=== PATIENT | male | born 1975 | race Caucasian/White ===

== ENCOUNTER 2024-05-21 18:06 | Emergency (ER) | payer BC, SELFPAY ==
[2024-05-21] VITALS (12 sets, daily range): BP systolic 116–128; BP diastolic 72–83; PULSE 54–60; RESP 18–19; TEMP 36.4; O2SAT 95–98; BMI 28.7
--- NOTE | 2024-05-21 18:22 | ED.CHESTPAIN ---
HPI - Chest Pain General Time Seen by Provider: 18: Date Seen: 05/21/24 Chief Complaint: Chest Pain Stated Complaint: chest pain Time Seen by Provider: 05/21/24 18:21 Source: patient and RN notes reviewed Mode of arrival: ambulatory Limitations: no limitations History of Present Illness HPI narrative: This 48-year-old male with no prior cardiac history is coming in with chest discomfort. Has chest tightness, pain that goes into his neck, some into the left shoulder blade that is been present since Saturday. Saturday he had an episode walking down to the [employer] where he was sweaty, pale, had to sit down, the pain was worse than it did improve. He had another episode today where was worse. He rested for 15-30 minutes and it improved. He baseline has discomfort in his chest now but not as severe as what it was. There is no respiratory change with this, no GI symptoms such as nausea or abdominal pain. The pain is not going into his left arm, notes no neurologic changes. Both parents have a pacemaker, his dad had a heart attack in his 50s. Patient believes that his blood pressure, cholesterol, glucose have been good, he believes they were just recently checked. He has had no recent illness, no cough or cold symptoms accompanying this. He did recently have some cramps in his legs, he did try a potassium pill, that did not help. Related Data Home Medications ?Medication ?Instructions ?Recorded ?Confirmed multivitamin 1 tab PO QDAY 04/08/23 05/21/24 cholecalciferol (vitamin D3) 250 250 mcg PO QDAY 12/17/23 05/21/24 mcg (10,000 unit) capsule Allergies Allergy/AdvReac Type Severity Reaction Status Date / Time No Known Drug Allergies Allergy Verified 05/21/24 18:18 Review of Systems Status of ROS Reports: 6 or more systems reviewed and unremarkable except as noted in History and below [facility] Medical History Skin lesion of face ?L98.9 - Disorder of the skin and subcutaneous tissue, unspecified (ICD-10) Surgical History S/P inguinal hernia repair ?Z98.890 - Other specified postprocedural states (ICD-10) ?Z87.19 - Personal history of other diseases of the digestive system (ICD-10) S/P lumbar discectomy ?Z98.890 - Other specified postprocedural states (ICD-10) Social History Narrative: Single, manager [employer], 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, social ETOH Smoking Status: Current every day smoker What tobacco products do you use: cigarettes Do you use any of these nicotine containing products: None How often do you have a drink containing alcohol: 2-3 times a week AUDIT-C Alcohol total score: 3 Non-prescribed substance use: denies use Little interest or pleasure in doing things: not at all Feeling down, depressed, or hopeless: not at all Exam Const Vital Signs, click to edit/add: Vital Signs - 24 hr 05/21/24 18:13 05/21/24 18:26 05/21/24 18:30 Temperature 97.5 F L Pulse Rate 56 L 59 L Pulse Rate [Pulse Oximeter] 55 L Respiratory Rate 18 Blood Pressure Blood Pressure [Right Upper Arm] 116/72 Pulse Oximetry 98 97 97 Oxygen Delivery Method Room Air 05/21/24 18:31 05/21/24 18:32 05/21/24 18:33 Temperature Pulse Rate 56 L 60 Pulse Rate [Pulse Oximeter] Respiratory Rate 19 Blood Pressure 125/75 Blood Pressure [Right Upper Arm] Pulse Oximetry 96 97 Oxygen Delivery Method 05/21/24 18:34 05/21/24 18:48 05/21/24 18:49 Temperature Pulse Rate 55 L 56 L Pulse Rate [Pulse Oximeter] Respiratory Rate Blood Pressure 128/83 Blood Pressure [Right Upper Arm] Pulse Oximetry 96 96 96 Oxygen Delivery Method 05/21/24 19:00 05/21/24 19:02 05/21/24 19:15 Temperature Pulse Rate 59 L 57 L 54 L Pulse Rate [Pulse Oximeter] Respiratory Rate Blood Pressure 118/76 Blood Pressure [Right Upper Arm] Pulse Oximetry 96 96 95 Oxygen Delivery Method Course Course ED Course: Have reviewed with patient that his initial EKG is looking reassuring. He understands that he will have an IV placed, will be monitored on pulse oximetry and cardiac monitoring. He will have a troponin done. He has had baseline symptoms since Saturday, a solitary troponin should be sufficient to rule out active ischemic disease. He has had 2 episodes of worsening but does have baseline discomfort. Will do a screening portable chest x-ray to look at lung pathology, cardiac size. He will have full complement of labs. He does understand that if the troponin is normal, this does not completely rule out underlying cardiac disease but only tells us that he has no active ischemia raising his heart enzymes. He understands that we are doing a screening D-dimer in consideration of thromboembolic disease. Doubt dissection with his blood pressure and his symptoms. Reevaluation(s) Time of Reevaluation #1: 19:50 Reevaluation #1: Reviewed normal labs including troponin and d dimer with the patient. He still has a sense of mild underlying discomfort. Nothing like he got on Saturday with walking or with driving this am. Time of Reevaluation #2: 20:42 Reevaluation #2: Patient was upset, states he has been waiting 50 minutes and has not heard anything. Reviewed with him that Cardiology had not called back. He does not want to wait. Gave him the option of just scheduling a stress test so that he does not have to follow-up, go through primary care to get this scheduled. We can get him a follow-up appointment in clinic for further management of his symptoms once his stress test is done. He does not have a primary provider per his report. He agrees that he will come back if he has any further episodes of increasing chest pain. Did apologize that we had not heard back from Cardiology, my plan was to have staff page them again if we had an heard by 1 hour. Did review with him that I do note that the external facilities are quite busy, it does make us wait longer to hear back. He would just like to go home, we will schedule a stress test for him to try to facilitate further workup to rule out ischemic heart disease. Vital Signs Vital signs: Initial Vital Signs Temperature 97.5 F L 05/21/24 18:13 Temperature Source Temporal Artery Scan 05/21/24 18:13 Pulse Rate 55 L 05/21/24 18:13 Respiratory Rate 18 05/21/24 18:13 Blood Pressure 116/72 05/21/24 18:13 Blood Pressure Mean 86 05/21/24 18:13 Blood Pressure Position Sitting 05/21/24 18:13 Pulse Oximetry 98 05/21/24 18:13 Oxygen Delivery Method Room Air 05/21/24 18:13 Vital Signs Temperature 97.5 F L 05/21/24 18:13 Pulse Rate 55 L 05/21/24 18:13 Respiratory Rate 18 05/21/24 18:13 Blood Pressure 116/72 05/21/24 18:13 Pulse Oximetry 98 05/21/24 18:13 Oxygen Delivery Method Room Air 05/21/24 18:13 Temperature 97.5 F L 05/21/24 18:13 Pulse Rate 54 L 05/21/24 19:15 Respiratory Rate 19 05/21/24 18:33 Blood Pressure 118/76 05/21/24 19:02 Pulse Oximetry 95 05/21/24 19:15 Oxygen Delivery Method Room Air 05/21/24 18:13 MDM - Chest Pain Lab Data Attestation: I reviewed the patient's lab results. Labs: Lab Results 05/21/24 05/21/24 Range/Units 18:45 19:08 WBC 7.80 (4.50-11.00) K/uL RBC 5.11 (4.30-5.90) m/uL Hgb 16.3 (13.5-17.5) gm/dL Hct 47.6 (37.0-53.0) % MCV 93 (80-100) fL MCH 32 (26-34) pg MCHC 34 (32-36) gm/dL RDW Coeff of Yolanda 12.2 (11.5-15.5) % Plt Count 204 (140-440) K/uL Neut % (Auto) 48.6 (42.0-72.0) % Lymph % (Auto) 40.5 (20-44) % Oldham % (Auto) 7.7 (0.0-11.0) % Eos % (Auto) 2.6 (0.0-7.0) % Baso % (Auto) 0.5 (0.0-3.0) % Neut # (Auto) 3.79 (1.7-7.0) K/uL Lymph # (Auto) 3.16 H (0.90-2.90) K/uL Oldham # (Auto) 0.60 (0.00-0.90) K/UL Eos # (Auto) 0.20 (0.00-0.50) K/uL Baso # (Auto) 0.04 (0.00-0.30) K/uL Abs Immat Gran (auto) 0.01 (0.00-0.30) K/uL Imm/Tot Granulo (auto) 0.1 % D-Dimer Quant (PE/DVT) 0.23 (0.00-0.50) ug/ml Sodium 138 (135-149) mmol/L Potassium 4.0 (3.6-5.1) mmol/L Chloride 106 (96-114) mmol/L Carbon Dioxide 25 (20-32) mmol/L Anion Gap 7 (7-15) mEq/L BUN 22 (5-24) mg/dL Creatinine 1.1 (0.5-1.5) mg/dL Estimated Creat Clear 85.72 Estimated GFR 83 ml/min Glucose 101 (60-115) mg/dL Lactate 0.8 (0.5-1.9) mmol/L Calcium 9.3 (8.4-10.6) mg/dL Magnesium 2.2 (1.5-2.6) mg/dL Total Bilirubin 0.3 (0.1-1.5) mg/dL AST 28 (12-35) U/L ALT 14 (4-50) U/L Alkaline Phosphatase 44 (40-150) U/L Troponin I < 0.01 L (0.01-0.04) ng/mL C-Reactive Protein < 0.5 L (0.5-1.0) mg/dL NT-Pro-B Natriuret Pep < 20 pg/mL Total Protein 6.7 (6.0-8.3) g/dL Albumin 4.4 (3.3-5.0) g/dL POC Troponin I 0.00 L (0.01-0.04) ng/ml ECG Data Attestation: I personally reviewed and interpreted this ECG as follows: (Sinus bradycardia, 58 beats per minute. No acute ischemic change or infarct noted.) ECG interpretation date: 05/21/24 ECG interpretation time: 18:32 Prior ECG tracings: not available for review Discharge Plan Discharge Clinical Impression: Chest pain Qualifiers: Chest pain type: unspecified Qualified Code(s): R07.9 - Chest pain, unspecified Patient Disposition: Home, Self-Care Condition: Stable Instructions: Chest Pain (ED) Additional Instructions: Do recommend taking an 81 mg aspirin daily until you have been further evaluated. I have placed an order for cardiac stress test, the facility will contact you to get this scheduled. In the meantime, should you have any increasing your chest symptoms, have further concerns, please return to the ER for re-evaluation. Limit activity to not stress your heart at this point. Activity Level: Light activity Prescriptions: No Action multivitamin Tablet 1 tab PO QDAY cholecalciferol (vitamin D3) 250 mcg (10,000 unit) capsule 250 mcg PO QDAY Follow Up/Referrals: Hector Quintanilla MD [Primary Care Provider] - Stand Alone Forms: Reclog Info Instructions
--- NOTE | 2024-05-21 18:31 | CRLHL7_ITS ---
For Patients: As a result of the Cures Act, medical imaging exams and procedure reports are released immediately into your electronic medical record. You may view this report before your referring provider. If you have questions, please contact your health care provider. INDICATION: Chest pain. TECHNIQUE: Chest 1 views. COMPARISON: None. FINDINGS: Cardiovascular and mediastinum: Heart size and vasculature are normal in caliber and appearance. Lungs and pleural spaces: Low lung volume. No sign of infiltrate or mass. No sign of pleural effusion. No pneumothorax. Bones and soft tissues: No significant findings. IMPRESSION: Low lung volumes. No acute or significant findings. Dictated by Tye Mora MD @ 05/21/2024 7:04:26 PM (Electronically Signed)
[2024-05-21 18:51] LABS: Lactate* 0.8 mmol/L (0.5-1.9)
[2024-05-21 18:54] LABS: Basophils Absolute Auto 0.04 K/uL (0.00-0.30); Basophils Percent Auto 0.5 % (0.0-3.0); Eosinophils Percent Auto 2.6 % (0.0-7.0); Hematocrit 47.6 % (37.0-53.0); Hemoglobin* 16.3 gm/dL (13.5-17.5); Immature Granulocytes Abs Auto 0.01 K/uL (0.00-0.30); Immature Granulocytes Pct Auto 0.1 %; Lymphocytes Absolute Auto 3.16 K/uL (0.90-2.90); Lymphocytes Percent Auto 40.5 % (20-44); Mean Corpuscular HGB Conc 34 gm/dL (32-36); Mean Corpuscular Hemoglobin 32 pg (26-34); Mean Corpuscular Volume 93 fL (80-100); Monocytes Percent Auto 7.7 % (0.0-11.0); Neutrophils Absolute Auto 3.79 K/uL (1.7-7.0); Neutrophils Percent Auto 48.6 % (42.0-72.0); Platelet Count* 204 K/uL (140-440); RDW Coefficient of Variation % 12.2 % (11.5-15.5); Red Blood Count 5.11 m/uL (4.30-5.90)
[2024-05-21 18:56] LABS: Slide Review Reflex No
--- OUTSIDE RECORDS SUMMARY | 2024-05-21 19:00 | XMS_ITS | Clinical Summary ---
Author Organization [facility] Address [place], [place] [address] Care Team Providers Care Charge Rn Name Role Phone David Lentz MD Primary Care Provider Unavaila ble Allergies No known active allergies Medications No known medications Active Problems Problem Noted Date Diagnosed Date Adjustment disorder with anxious mood 10/11/2018 Closed head injury 03/17/2018 Lumbar radicular pain 03/04/2015 Displacement of lumbar inter vertebral disc without myelopathy 02/04/2009 Degeneration of lumbar or lumbosacral interverte bral disc 02/04/2009 Lumbosacral spondylosis without myelopathy 02/04 Immunizations Name Administration Dates Next Due Hepatitis B (Adult) 04/26/2011,03/27/2011 Tdap 03/14/2018,05/24/2011 Family History Medical History Relation Name Comments Good Health Brother Lane Cancer Father at 73 of G lioblastoma Heart attack Father Other Father Pacemaker at 65 Dementia Mother sxs started at 65 worsened at 71 Other Mother Pacemaker at 65 Anesthesia Problem No Family History Blood Disease No Family History Relation Name Status Comments Brother Lane Alive Father Mother Alive Social History Tobacco Use Types Packs/Day Years Used Date Smoking Tobacco: Former Cigarettes 0.3 20.9 2 - 08/2023 Smokeless Tobacco: Never Tobacco Cessation:Counseling Given: Not Answered Comments:occassionally 06/2020 Alcohol Use Standard Drinks/Week Comments Yes 1 (1 standard drink = 0.6 oz pur e alcohol) PHQ-2 Answer Date Recorded PHQ-2 TOTAL SCORE 0 12/18/2023 Social Connections Answer Date Recorded Frequency of Communication with Friends and Fami ly 0 12/18/2023 Alcohol Use Answer Date Recorded How often do you have a drink containing alcohol ? 2 12/18/2023 How many drinks containing a lcohol do you have on a typical day when you are drinking? 0 12/18/2023 How often do you have five or more drinks on one occasion? 0 12/18/2023 Financial Resource Strain Answer Date R ecorded Difficulty of Paying Living Expenses 3 12/18/2023 Difficulty of Paying Living Expenses Not on file 12/18/2023 Food Insecurity Answer Date Recorded Worried About Running Out of Food in the Last Ye ar 1 12/18/2023 Transportation Needs Answer Date Record ed Lack of Transportation (Medical) 1 12/18/2023 Housing Stability Answer Date Recorded Unable to Pay for Housing in the Last Year 1 12/18/2023 Sex and Gender Information Value Date Recorded Sex Assigned at Not on file Gender Identity Not on file Sexual Orientation Not on file Obstetrics History Last Filed Vital Signs Vital Sign Reading Time Taken Comments Blood Pressure 118/72 12/18/2023 8:30 AM CDT Pulse 57 12/18/2023 8:30 AM CDT Temperature 36.8 ??C (98.2 ??F) 12/18/2023 8:30 AM CD T Respiratory Rate 16 03/02/2015 6:51 PM CDT Oxygen Saturation 99% 12/18/2023 8:30 AM CDT Inhaled Oxygen Concentration - - Weight 89.1 kg (196 lb 8 oz) 12/18/2023 8:30 AM CDT Height 174 cm (5' 8.5) 12/18/2023 8:30 AM CDT Body Mass Index 29.44 12/18/2023 8:30 AM CDT Plan of Treatment Health Maintenance Due Date Last Done Comments HIV for age 15-65 1991 Hepatitis C screening for age 18-79 1994 Colonoscopy through age 75 2021 COVID-19 vaccine series ( season) 2023 Influenza for age 9-49 05/31/2024 BMI (ht and wt on same day) for age 18+ 12/17/2024 12/18/2023, 12/15/2021, 07/06/2020, Additional history exists Depression screening for age 12+ 12/17/2024 12/18/2023, 12/15/2021, 07/06/2020, Additional history exists Tetanus booster 03/14/2028 03/14/2018, 05/01, 05/24/2011 Lipids for age 45-75 12/11/2028 12/12/2023, 07/06/20 20 Tdap Completed 03/14/2018, 05/24/2011 Pneumococcal series for age 6-64 Aged Out No longer eligible based on patient's age to complete this topic Procedures Procedure Name Priority Date/Time Associated Diagnosis Comments LIPID PANEL W REFLEX MEASURED LDL Routine 12/12/2023 8:45 AM CDT Lipid screening from Last 3 Months or Most Recently Relevant to Health Maintenance Results * LIPID PANEL W REFLEX MEASURED LDL (12/12/2023 8:45 AM CDT) CHOLESTEROL,TOTAL 194 100 - 199 mg/dL 12/12/2023 9:22 AM [facility] Comment: Cholesterol, Total Reference Ranges Desirable <200 mg/dL Borderline 200-239 mg/dL High >=240 mg/dL TRIGLYCERIDES 50 <150 mg/dL 12/12/2023 9:22 AM [facility] HDL CHOLESTEROL 80 >40 mg/dL 9:22 AM [facility] NON-HDL CHOLESTEROL 114 <145 mg/dl 12/12/2023 9:22 AM [facility] CHOL/HDL RATIO 2.43 <4.50 12/12/2023 9:22 AM [facility] LDL CHOLESTEROL 104 <=130 mg/dL 12/12/2023 9:22 AM [facility] VLDL CHOLESTEROL 10 <=30 mg/dL 12/12/2023 9:22 AM [facility] PROVIDER ORDERED STATUS RANDOM 12/12/2023 9:22 AM [facility] Blood BLOOD SPECIMEN / Unknown Venipuncture / Unknown 12/12/2023 8:45 AM CDT 12/12/2023 8:45 AM CDT David Reed MD CHEMISTRY [facility] [address] [place] [id number] from Last 3 Months or Most Recently Relevant to Health Maintenance Advance Directives * Full Code (Latest Code Status on File) Date Activated Date Inactivated Comments 06/05/2011 5:18 PM 06/06/2011 12:35 PM * Full Code Date Activated Date Inactivated Comments 06/05/2011 6:02 AM 06/05/2011 5:16 PM Care Teams Charge Rn Relationship Specialty Start Date End Date David Lentz MD PCP - General Family Practice 12/15/21
--- OUTSIDE RECORDS SUMMARY | 2024-05-21 19:00 | XMS_ITS | Continuity of Care Document ---
Author Organization [facility] Address [address] [place] [address] [address] [place] [address] Phone Care Team Providers Care Hairspring Vibrator Name Role Phone Laura Velasquez MD Unavailable Unavailable Medications Medication Instructions Dosage Effective Dates (start - stop) Status Comments Scooba 5 mg-325 mg Tab take 1 Tablet by ORAL route every 12 hours as needed for pain 1 Tablet - Active Scooba 10 mg-325 mg Tab take 1 Tablet by Oral route every 6 - 8 hours as needed 1 Tablet - Active prednisone 20 mg Tab take 1 tablet (20MG ) by oral route 2 times every day 20 MG - Active Procedures Procedure Date Postop followup visit Low back disk surgery/decompress 2010 Added spine disk surgery/decompress Office/outpatient visit,est, low 2010 Office consultation, moderate 9 X-ray exam of pelvis, 1-2 views 009 Advance Directives Directive Yes / No Effective Date File Name No Information Encounters Encounter Description Practice Location Reason(s) For Visit Diagnoses Date Provider Providers Copied on Encounter Z [facility], [address] [place], [place] [address]Suite [facility], [place], [address], [place] tel:[phone] [place] No Information 201 1 Eva Anglin [facility], [address], [place], [place], [id number] , [place]. tel:[phone] [facility], [address] [place], [place] [address], [place], [address], [place] tel:[phone] [place] No Information Jun- 6-201 1 Mehbod Amir. [facility], [address], [place], [place], [id number] , [place]. tel:[phone] Z [facility], [address], [place], [address], [place] tel:[phone] [place] No Information Jun- 7-201 1 Mehbod Amir. [facility], [address], [place], [place], [id number] , [place]. tel:[phone] Referring Provider: Naveen Baltazar, [facility] [address], [place], [address]. tel:[phone] [facility], [address], [place], [address], [place] tel:[phone] [place] No Information 1-201 1 Mehbod Amir. [facility], [address], [place], [place], [id number] , [place]. tel:[phone] Z [facility], [address], [place], [address], [place] tel:[phone] [facility] No Information May-0 6-201 1 Mehbod Amir. [facility], [address], [place], [place], [id number] , [place]. [phone] Referring Provider: [facility] Balta[facility], [facility] [address], [place], [address]. tel:[phone] Office/outpat ient visit,est, low [facility], [address], [place], [address], [place] tel:[phone] [place] No Information 5-201 1 Mehbod Amir. [facility], [address], [place], [place], [id number] , [place]. tel:[phone] Referring Provider: Naveen Baltazar, [facility] [address] [facility], [place], [address]. tel:[phone] Office consultation, moderate Z [facility], [address] [place], [place] [address], [place], [address], [place] tel:[phone] [facility] No Information Feb-0 4-200 9 Mehbod Amir. [facility], [address] [place] [address] [address], [place], [place], [id number] , [place]. tel:[phone] Referring Provider: Naveen Baltazar, [facility] [address] [facility], [place], [address]. tel:[phone] Family History Family Member Type Diagnosis Age At Onset No Information Payers Payer name Insurance type Covered alliance party ID Authornicanora hortenciaalisha(s) [employer] [id number] Social History Type Description Quantity Date Captured Comments Sex Male Smoking Status No Information Chief Complaint And Reason For Visit No Information Reason For Referral Reason For Referral No Information History Of Present Illness Encounter Date Complaint History Of Prese nt Illness No Information Functional Status Date Functional Assessmen t No Information Instructions Date Instruction Additional Infor mation No Information Assessments Type Assessment Date No Information Patient Care Teams Name Effective Dates (start - stop) Status Members No Information
--- OUTSIDE RECORDS SUMMARY | 2024-05-21 19:00 | XMS_ITS | Clinical Summary ---
Author Organization [facility] Address [address], [place] [address] Care Team Providers Care Personnel Generalist Manager Name Role Phone Unavailable Primary Care Provider Unavailabl e Source Comments You are receiving this document as you are listed as the primary care provider,follow-up provider, or the patient has been referred to you for consultation.This is in compliance with the Medicare andMedicaid EHR Incentive Program,which states Providers who transition their patient to another setting of careor provider of care or refers their patient to another provider of care shouldprovide summary care record for each transition of care or referral. [facility] Allergies No known active allergies Medications Medication Sig Dispensed Refills Start Date End Date Status oxyCODONE-acetaminoph en (PERCOCET) 5-325 MG tablet Take 1 Tablet by mouth every 8 hours as needed for Pain. 07/29/2023 Active methylPREDNISolone (MEDROL 21 TABLET DOSEPACK) 4 MG tablet Take as directed. 21 Tablet 07/29/2023 Active Social History Tobacco Use Types Packs/Day Years Used Date Smoking Tobacco: Never Assessed Sex and Gender Information Value Date Recorded Sex Assigned at Not on file Gender Identity Not on file Sexual Orientation Not on file Last Filed Vital Signs Vital Sign Reading Time Taken Comments Blood Pressure - - Pulse - - Temperature 36.5 ??C (97.7 ??F) 07/29/2023 2:14 PM CD T Respiratory Rate - - Oxygen Saturation - - Inhaled Oxygen Concentration - - Weight 91.6 kg (202 lb) 07/29/2023 2:14 PM CDT Height 180.3 cm (5' 11) 07/29/2023 2:14 PM CDT Body Mass Index 28.17 07/29/2023 2:14 PM CDT Plan of Treatment Health Maintenance Due Date Last Done Comments Colon Cancer Screening Plan Due 1976 Diabetes Screening- (based o n age and BMI) 1976 Hep C Screening (Preventive Services) 1976 HIV Screening (Preventive Services) 1992 Adult Preventive Visit 1994 HepB (1) 1995 Cholesterol 2011 COVID-19 Vaccine (1 - 2022-2 4 season) 2023 Influenza (#1) 2024 Zoster/Shingles (1 of 2) 2026 DTaP/Tdap/Td (3 - Tdap) 03/14/2028 03/14/20 18, 05/24/2011 HepA Aged Out No longer eligi ble based on patient's age to complete this topic Hib Aged Out No longer eligi ble based on patient's age to complete this topic IPV (Polio) Aged Out No longer eligi ble based on patient's age to complete this topic MCV4 Aged Out No longer eligi ble based on patient's age to complete this topic Pneumococcal Aged Out No longer eligi ble based on patient's age to complete this topic NylaCherelle riverson Personal/Family Self [address] [place] [id number]
[2024-05-21 19:17] LABS: D Dimer Quantitative* 0.23 ug/ml (0.00-0.50)
[2024-05-21 19:19] LABS: Albumin* 4.4 g/dL (3.3-5.0); Chloride* 106 mmol/L (96-114); Sodium* 138 mmol/L (135-149)
[2024-05-21 19:22] LABS: Anion Gap 7 mEq/L (7-15); Bilirubin Total* 0.3 mg/dL (0.1-1.5); Carbon Dioxide* 25 mmol/L (20-32); Creatinine* 1.1 mg/dL (0.5-1.5); Est. Creatinine Clearance* 85.72; Estimated Glomerular Filt Rate 83 ml/min; Total Protein* 6.7 g/dL (6.0-8.3)
[2024-05-21 19:23] LABS: Alanine Aminotransferase* 14 U/L (4-50); Alkaline Phosphatase* 44 U/L (40-150); Aspartate Amino Transferase* 28 U/L (12-35); Blood Urea Nitrogen* 22 mg/dL (5-24); Calcium* 9.3 mg/dL (8.4-10.6); Glucose* 101 mg/dL (60-115); Magnesium* 2.2 mg/dL (1.5-2.6)
[2024-05-21 19:28] LABS: C Reactive Protein* < 0.5 mg/dL (0.5-1.0)
[2024-05-21 19:32] LABS: NT Pro B Type NatriureticPept* < 20 pg/mL
[2024-05-21 19:36] LABS: Troponin I* < 0.01 ng/mL (0.01-0.04)
== END 2024-05-21 20:50 | disposition home or self-care (01) ==
PROVIDERS: Emergency Provider Family Medicine; PCP Family Medicine
DX: R07.9 Chest pain, unspecified (principal)
CPT/HCPCS: 36415; 71045; 80053; 83605; 83735; 83880; 84484; 85025; 85379; 86140; 93005; 94761; 99284; 99285

== ENCOUNTER 2024-06-04 14:45 | Outpatient (CLI) | payer BC, SELFPAY ==
--- OUTSIDE RECORDS SUMMARY | 2024-06-04 14:47 | XMS_ITS | Clinical Summary ---
Author Organization [facility] Address [address], [place] [address] Care Team Providers Care Chief Solution Architect Name Role Phone Unavailable Primary Care Provider [...] COVID-19 Vaccine (1 - 2022-2 4 season) 2024 Influenza (#1) 2024 Zoster/Shingles (1 of 2) [...] Personal/Family Self [address] [place] [address] [id number]
--- OUTSIDE RECORDS SUMMARY | 2024-06-04 14:47 | XMS_ITS | Clinical Summary ---
Author Organization [facility] Address [place], [place] [address] Care Team Providers Care Restaurant Area Director Name Role Phone David Lentz MD Primary [...] disc 02/04/2009 Lumbosacral spondylosis without myelopathy 02/04 Encounters Date Type Department Care Team Description 05/21/2024 Orders Only [facility] Scanner 1 scan: (1-Ord) [place], CHEST 1VW, 05/21/2024 from Last 3 Months Immunizations Name Administration Dates Next Due Hepatitis [...] Smoking Tobacco: Former Cigarettes 0.3 20.9 2 003 - 08/2023 Smokeless Tobacco: Never Tobacco Cessation:Counseling [...] 12/18/2023 8:30 AM CDT Plan of Treatment Upcoming Encounters Date Type Department Care Team (Late st Contact Info) Description 06/04/2024 3:00 PM CDT Ancillary Procedure [facility] [address] [place] [address] Arrived Health Maintenance Due Date Last Done Comments HIV for age 15-65 1991 Hepatitis C screening for age 18-79 1994 Colonoscopy through age 75 2021 COVID-19 vaccine series ( season) 2024 Influenza for age 9-49 05/31/2024 BMI (ht and wt on same day) for age 18+ 12/17/2024 12/18/2023, 12/15/2021, 07/06/2020, Additional history exists Depression screening for age 12+ 12/17/2024 12/18/2023, 12/15/2021, 07/06/2020, Additional history exists Tetanus booster 03/14/2028 03/14/2018, 05/01, 05/24/2011 Lipids for age 45-75 12/11/2028 12/12/2023, 07/06/20 Tdap Completed 03/14/2018, 05/24/2011 Pneumococcal series for age 6-64 Aged Out No longer eligible based on patient's age to complete this topic Procedures Procedure Name Priority Date/Time Associated Diagnosis Comments SCAN-RADIOLOGY REPORT 05/21/2024 12:00 AM CDT LIPID PANEL W REFLEX MEASURED LDL Routine 12/12/2023 8:45 AM CDT Lipid screening from Last 3 Months or Most Recently Relevant to Health Maintenance Results * SCAN-RADIOLOGY REPORT (05/21/2024 12:00 AM CDT) Anatomical Region Laterality Modality Other Scanner OTHER * LIPID PANEL W REFLEX MEASURED LDL (12/12/2023 8:45 AM CDT) CHOLESTEROL,TOTAL 194 100 - 199 mg/dL 12/12/2023 9:22 AM CDT [facility] Comment: Cholesterol, Total Reference Ranges Desirable <200 mg/dL Borderline 200-239 mg/dL High >=240 mg/dL TRIGLYCERIDES 50 <150 mg/dL 12/12/2023 9:22 AM CDT [facility] HDL CHOLESTEROL 80 >40 mg/dL 9:22 AM T [facility] NON-HDL CHOLESTEROL 114 <145 mg/dl 12/12/2023 9:22 AM CDT [facility] CHOL/HDL RATIO 2.43 <4.50 12/12/2023 9:22 AM CDT [facility] LDL CHOLESTEROL 104 <=130 mg/dL 12/12/2023 9:22 AM CDT [facility] VLDL CHOLESTEROL 10 <=30 mg/dL 12/12/2023 9:22 AM CDT [facility] PROVIDER ORDERED STATUS RANDOM 12/12/2023 9:22 AM CDT [facility] Blood BLOOD SPECIMEN / Unknown Venipuncture / Unknown 12/12/2023 8:45 AM CDT 12/12/2023 8:45 AM CDT David Reed MD CHEMISTRY [facility] [address] [place] [id number] from Last 3 Months or Most Recently Relevant to Health Maintenance Advance Directives * Full Code (Latest Code Status on File) Date Activated Date Inactivated Comments 06/05/2011 5:18 PM 06/06/2011 12:35 PM * Full Code Date Activated Date Inactivated Comments 06/05/2011 6:02 AM 06/05/2011 5:16 PM Care Teams Restaurant Area Director Relationship Specialty Start Date End Date David Lentz MD PCP - General Family Practice 12/15/21
--- OUTSIDE RECORDS SUMMARY | 2024-06-04 14:47 | XMS_ITS | Continuity of Care Document ---
Author Organization Z [facility] [place] Address [address] [place] [address] [address] [place] [address] Phone Care Team Providers Care Supervisor Calibration Name Role Phone Laura Velasquez MD Unavailable Unavailable Medications Medication Instructions Dosage Effective Dates (start - stop) Status Comments [place] 5 mg-325 mg Tab take 1 Tablet by ORAL route every 12 hours as needed for pain 1 Tablet - Active [place] 10 mg-325 mg Tab take 1 Tablet [...] Date Provider Providers Copied on Encounter Z [facility], [address] [place], [place] [address]Suite [facility], [place], [address], [place] tel:[phone] [employer] No Information 201 1 Eva Anglin [facility] [place], [address], [place], [place], [id number] , [place]. tel:[phone] Z [facility], [address] [place], [place] [address], [place], [address], [place] tel:[phone] [employer] No Information Jun- 6-201 1 Mehbod Amir. [facility], [address], [place], [place], [id number] , [place]. tel:[phone] [facility], [address], [place], [address], [place] tel:[phone] [employer] No Information Jun- 7-201 1 Mehbod Amir. [facility], [address], [place], [place], [address] , [place]. tel:[phone] Referring Provider: Naveen Baltazar, [facility] [address], [place], [address]. tel:[phone] Z [facility], [address] [address], [place], [address], [place] tel:[phone] [employer] No Information 1-201 1 Mehbod Amir. [facility], [address], [place], [place], [id number] , [place]. tel:[phone] Z [facility], [address] [facility], [place], [address], [place] tel:[phone] [facility] No Information May-0 6-201 1 Mehbod Amir. [facility], [address], [place], [place], [id number] , [place]. [phone] Referring Provider: Naveen Baltazar, [facility] [address], [place], [address]. tel:[phone] Office/outpat ient visit,est, low Z [facility], [address], [place], [address], [place] tel:[phone] [employer] No Information 5-201 1 Mehbod Amir. [facility], [address], [place], [place], [address] , [place]. tel:[phone] Referring Provider: Naveen Baltazar, [facility] [address] [facility], [place], [address]. tel:[phone] Office consultation, moderate Z [facility], [address] [place], [place] [address], [place], [address], [place] tel:[phone] [facility] No Information Feb-0 4-200 9 Mehbod Amir. [facility], [address] [place] [address] [address], [place], [place], [address] , [place]. tel:[phone] Referring Provider: Naveen Baltazar, [facility] [address], [place], [address]. tel:[phone] Family History Family Member Type Diagnosis Age At Onset No Information Payers Payer name Insurance type Covered constitution party ID Authornicanora hortenciaalisha(s) [employer] [id number] Social History Type Description Quantity Date Captured [...]
[2024-06-04 15:38] VITALS: BP 138/74; PULSE 88; RESP 18
--- NOTE | 2024-06-04 16:04 | W.PM.STED ---
Stress Test Note Date Date Seen: 06/04/24 Date of test: 06/04/24 Providers Primary care provider: Ever South Stress test physician: Karmen Monique Stress Test Note Stress test ordered: Stress Echo Indication for test: Chest pain Stress test medicine: None Results discussion: Resting EKG: Sinus bradycardia, 48 beats per minute. Resting blood pressure: 116/77 Stress test: Patient was consented on ordered stress test. Standard exercise treadmill Galileo protocol was subsequently performed. Patient was able to exercise to 12 minutes 42 seconds, stopping due to reaching exercise tolerance and his goal heart rate. Patient exercised to equivalent of 13.1 Mets. He had a maximum heart rate of 160 beats per minute which was 108% of a calculated target heart rate of 147. He had a rate pressure product of 25,200. He did develop some mild substernal chest discomfort that was gone by the termination of the stress test. He was able to complete the stress test, did not worsen. Occasional PVC was seen, no significant PVC burden. There is no arrhythmia noted. There was no identifiable EKG change for ischemia. Patient had resolution of his chest discomfort in recovery. Echo images are pending. Impression: Subjectively positive for chest pain, objectively negative EKG for ischemia. Follow up suggested: Await echo images to couple this for a full formal diagnostic, patient was discharged home in stable condition. He is being scheduled a follow-up appointment with Dr. South as he does not have a current primary.
== END 2024-06-04 14:46 | disposition home or self-care (01) ==
LOC: STRESS 14:45
PROVIDERS: PCP Family Medicine; Visit Provider Family Medicine
DX: R07.89 Other chest pain (principal)
CPT/HCPCS: 93016; 93325; 93351

== ENCOUNTER 2024-07-16 07:50 | Outpatient (CLI) | payer BC, SELFPAY ==
--- OUTSIDE RECORDS SUMMARY | 2024-07-16 07:52 | XMS_ITS | Clinical Summary ---
Author Organization [facility] Address [address] [address] Care Team Providers Care Player Manager Name Role Phone Unavailable Primary Care [...] 1995 Cholesterol 2011 COVID-19 Vaccine (1 - 2023-2 5 season) 2024 Influenza (#1) 2024 Zoster/Shingles (1 [...] on patient's age to complete this topic RSV Aged Out No longer eligi ble based on patient's age to complete this topic MCV4 Aged Out No longer eligi ble based on patient's age to complete this topic Pneumococcal Aged Out No longer eligi ble based on patient's age to complete this topic Samuel Vargas Personal/Family Self [address] [place] [id number]
--- OUTSIDE RECORDS SUMMARY | 2024-07-16 07:52 | XMS_ITS | Continuity of Care Document ---
Author Organization [facility] [place] Address [address] [place] [address] [address] [place] [address] Phone Care Team Providers Care Rope Machine Setter Name Role Phone Laura Velasquez MD Unavailable Unavailable Medications Medication Instructions Dosage Effective Dates (start - stop) Status Comments [place] 5 mg-325 mg Tab take 1 Tablet by ORAL route every 12 hours as needed for pain 1 Tablet - Active [place] 10 mg-325 mg Tab take 1 Tablet [...] Date Provider Providers Copied on Encounter Z [facility] [place], [address] [place], [place] [address]Suite [facility], [place], [address], [place] tel:[phone] [employer] No Information 201 1 Eva Anglin [facility], [address] [facility] [address] [facility] [address], [place], [place], [address] , [place]. tel:[phone] Z [facility], [address] [place], [place] [address], [place], [address], [place] tel:[phone] [employer] No Information Jun- 6-201 1 Mehbod Amir. [facility], [address], [place], [place], [id number] , [place]. tel:[phone] [facility], [address], [place], [address], [place] tel:[phone] [employer] No Information Jun- 7-201 1 Mehbod Amir. [facility], [address] [address], [place], [place], [id number] , [place]. tel:[phone] Referring Provider: Naveen Baltazar, [facility] [address], [place], [address]. tel:[phone] [facility], [address], [place], [address], [place] tel:[phone] [employer] No Information 1-201 1 Mehbod Amir. [facility], [address] [address], [place], [place], [address] , [place]. tel:[phone] [facility], [address], [place], [address], [place] tel:[phone] [facility] No Information May-0 6-201 1 Mehbod Amir. [facility], [address], [place], [place], [address] , [place]. [phone] Referring Provider: Naveen Baltazar, [facility] [address], [place], [address]. tel:[phone] Office/outpat ient visit,est, low [facility], [address], [place], [address], [place] tel:[phone] [employer] No Information 5-201 1 Mehbod Amir. [facility], [address] [address], [place], [place], [id number] , [place]. tel:[phone] Referring Provider: Naveen Baltazar, [facility] [address] [facility], [place], [address]. tel:[phone] Office consultation, moderate Z [facility], [address] [place], [place] [address], [place], [address], [place] tel:[phone] [facility] No Information Feb-0 4-200 9 Mehbod Amir. [facility], [address] [place] [address] [address], [place], [place], [address] , [place]. tel:[phone] Referring Provider: Naveen Baltazar, [facility] [address] [facility], [place], [address]. tel:[phone] Family History Family Member Type Diagnosis Age At Onset No Information Payers Payer name Insurance type Covered constitution party ID Authornicanora hortenciaalisha(s) [employer] [id number] Social History Type Description Quantity Date Captured [...]
--- NOTE | 2024-07-16 08:00 | CRLHL7_ITS ---
For Patients: As a result of the Century Cures Act, medical imaging exams and procedure reports are released immediately into your electronic medical record. You may view this report before your referring provider. If you have questions, please contact your health care provider. INDICATION: Syncope TECHNIQUE: Non-contrast CT of the head is submitted. Compared to prior study from May 08 2018 FINDINGS: The ventricles, sulci and gyri are of normal size, shape and contour. Midline structures are centrally located. No convincing evidence of intra- or extra-axial fluid collections. IMPRESSION: 1. Stable, no radiographic evidence of acute intracranial abnormalities. Please note that all CT scans at this facility use dose modulation, iterative reconstruction, and/or weight-based dosing when appropriate to reduce radiation dose to as low as reasonably achievable. Dictated by Jai Chowdary MD @ 07/16/2024 10:03:34 AM (Electronically Signed)
== END 2024-07-16 07:51 | disposition home or self-care (01) ==
LOC: CT 07:50
PROVIDERS: PCP Family Medicine; Visit Provider Internal Medicine
DX: R55 Syncope and collapse (principal)
CPT/HCPCS: 70450